=== PATIENT | male | born 1955 | race African-American/Black ===

== ENCOUNTER 2019-07-28 11:44 | Inpatient (IN) | payer OTHER ==
[~2019-07-28] VITALS: Ht 188 cm; Wt 81.9 kg
[~2019-07-28 11:44] MED LIST: PRILOSEC
[2019-07-28] MEDS ORDERED: SODIUM CHLORIDE 0.9% 1000ML 500 ML IV STA (11:56)
[2019-07-28 12:19] LABS: BASOPHILS % 0.5 % (0.0-1.0); EOSINOPHILS # (AUTO) 0.2 (0.0-0.4); EOSINOPHILS % 3.2 % (0.0-6.0); HEMATOCRIT 31.1 % (38.2-49.6); LYMPHOCYTES # (AUTO) 1.4 (1.0-3.2); LYMPHOCYTES % 21.5 % (18.0-39.1); MEAN CORPUSCULAR HEMOGLOBIN 27.2 pg (28-32); MEAN CORPUSCULAR HGB CONC 28.9 g/dL (31-35); MONOCYTES # (AUTO) 0.6 (0.2-0.8); MONOCYTES % 8.6 % (4.4-11.3); NEUTROPHILS # (AUTO) 4.4 (2.1-6.9); NEUTROPHILS % 65.9 % (38.7-80.0); PLATELET COUNT 273 x10e3/uL (140-360); RED BLOOD COUNT 3.31 x10e6/uL (4.3-5.7); RED CELL DISTRIBUTION WIDTH 20.2 % (11.7-14.4)
[2019-07-28 12:40] LABS: ALANINE AMINOTRANSFERASE 58 IU/L (0-55); ALBUMIN 3.4 g/dL (3.5-5.0); ALBUMIN/GLOBULIN RATIO 1.4 (0.8-2.0); ALKALINE PHOSPHATASE 80 IU/L (40-150); ANION GAP 10.4 mmol/L (8-16); BLOOD UREA NITROGEN 6 mg/dL (7-26); BUN/CREATININE RATIO 10 (6-25); CHLORIDE 93 mmol/L (98-107); CREATINE KINASE 96 IU/L (30-200); CREATININE, SERUM 0.62 mg/dL (0.72-1.25); EST GLOMERULAR FILTRATION RATE > 60 ML/MIN (60-); GLUCOSE 100 mg/dL (74-118); POTASSIUM 3.4 mmol/L (3.5-5.1); SODIUM 144 mmol/L (136-145)
[2019-07-28 12:48] LABS: CARBON DIOXIDE 44 mmol/L (22-29)
--- NOTE | 2019-07-28 13:07 | Diagnostic Imaging Report ---
EXAMINATION: Head and cervical spine CT without contrast. HISTORY: Status post fall, trauma, head and neck pain COMPARISON: None. TECHNIQUE: Multidetector axial images were obtained without contrast from the foramen magnum to the vertex and through the cervical spine. The images were reconstructed using brain and bone algorithms. Thin section brain images were reformatted into coronal and sagittal planes. Dose modulation, iterative reconstruction, and/or weight based adjustment of the mA/kV was utilized to reduce the radiation dose to as low as reasonably achievable. HEAD CT FINDINGS: Skull/scalp: No lytic or blastic lesions. No fractures. Incidentally noted benign bony exostosis in the left temporal parietal cortex. Parenchyma: Few scattered benign hypodensities, most likely nonspecific chronic microvascular changes, within normal limits for age. No mass, hemorrhage or CT evidence of acute vascular insult. Brain volume: Normal for age. Ventricles: No hydrocephalus or displacement. Arteries: No density suggestive of thrombus. Dural sinuses: No abnormal density. Extra-axial spaces: No abnormal density. Foramen magnum: No mass, Chiari malformation, or basilar invagination. Sella: No obvious mass. Paranasal/mastoid sinuses: Imaged portions unremarkable. CERVICAL SPINE CT FINDINGS: Alignment:Reversal of the cervical lordosis which may be related to multiple possible positional.. Soft tissues: Emphysematous changes in the lung apices.. Vertebrae: Normal height and density. No acute fracture, infection or neoplasm. Degenerative changes: C1-C2: Degenerative changes without stenosis. C2-C3: Disc osteophyte complex formation asymmetric to the right, bilateral uncovertebral and facet arthrosis. Moderate spinal canal and bilateral foraminal stenoses C3-C4: Disc osteophyte complex formation asymmetric to the right, uncovertebral arthrosis. Severe right and mild left foraminal stenosis. Moderate spinal canal stenosis. C4-C5: Asymmetric disc osteophyte complex formation, bilateral uncovertebral and facet arthrosis. Moderately severe right and moderate left foraminal stenosis. Mild canal stenosis. C5-C6: Disc osteophyte "formation, bilateral uncovertebral and facet arthrosis. Moderate right and severe left foraminal stenosis. Moderate spinal canal stenosis. C6-C7: Disc osteophyte complex formation, bilateral uncovertebral and facet arthrosis. Severe spinal canal and bilateral foraminal stenosis. C7-T1: Prominent facet arthrosis mainly on the right. Mild bilateral foraminal stenoses. IMPRESSION: Head CT: No acute traumatic intracranial abnormality, particularly no hemorrhage. Cervical spine CT: 1. No acute fractures or dislocations. 2. Chronic degenerative changes as described. Note: Acute post traumatic spinal cord, vascular or ligamentous injury cannot adequately be assessed with CT. Signed by: Dr. Alissa Rowan M.D. on 07/28/2019 1:04 PM
[2019-07-28 13:09] LABS: HYPOCHROMASIA SLIGHT; RBC MORPHOLOGY COMMENT ABNORMAL
--- NOTE | 2019-07-28 13:19 | Diagnostic Imaging Report ---
Right hip, 2 views Clinical indications: Fall, pain Comparison: None Findings: These right hip were obtained. There is no radiographic evidence of acute fracture or dislocation. There are mild degenerative changes of the right hip. Impression: No radiographic evidence of acute fracture or dislocation of the right hip. Signed by: Taurus Lew MD on 07/28/2019 1:16 PM
--- NOTE | 2019-07-28 13:20 | Diagnostic Imaging Report ---
Pelvis, one view Clinical indication: Fall, pain Comparison: None Findings: AP view of the pelvis was obtained. There is no radiographic evidence of acute fracture or dislocation. The bone mineralization is normal. Left iliac vascular stent is in place. Impression: No radiographic evidence of acute fracture or dislocation. Signed by: Taurus Lew MD on 07/28/2019 1:17 PM
--- NOTE | 2019-07-28 13:22 | Diagnostic Imaging Report ---
Right femur, 2 views of 4 radiographs Clinical indication: Fall, pain Comparison: None Findings: 2 views of the right femur were obtained on 4 radiographs. There is no radiographic evidence of acute fracture or dislocation. Atherosclerotic vascular calcifications are noted. There are degenerative changes of the right knee which are most pronounced in the lateral compartment. Impression: No radiographic evidence of acute fracture or dislocation. Signed by: Taurus Lew MD on 07/28/2019 1:19 PM
--- NOTE | 2019-07-28 13:26 | Diagnostic Imaging Report ---
Chest, portable AP view History: Fall Comparison: No comparisons available for review Findings: The heart is within normal limits of size. The mediastinal and hilar contours are unremarkable. A 13 mm nodular opacity seen in the right upper lung zone. No focal consolidation, pleural effusion, or pneumothorax. Impression: 13 mm nodular opacity in the right upper lung zone. A chest CT should be performed for further evaluation. Signed by: Taurus Lew MD on 07/28/2019 1:23 PM
[2019-07-28 13:55] LABS: BILIRUBIN,URINE NEGATIVE (NEGATIVE); COLOR,URINE YELLOW (YELLOW); KETONES,URINE NEGATIVE (NEGATIVE); LEUKOCYTE ESTERASE ,URINE NEGATIVE (NEGATIVE); NITRITE,URINE NEGATIVE (NEGATIVE); PROTEIN,URINE DIPSTICK NEGATIVE (NEGATIVE); URINE UROBILINOGEN 0.2 mg/dL (0.2 - 1)
[2019-07-28 13:56] LABS: CLARITY,URINE CLEAR (CLEAR)
[2019-07-28] MEDS ORDERED: CLOPIDOGREL75 MG (14:01)
[2019-07-28] MEDS ORDERED: FENOFIBRATE134 MG (14:01)
[2019-07-28] MEDS ORDERED: CLOTRIMAZOLE10 MG (14:01)
[2019-07-28] MEDS ORDERED: LOSARTAN POTASS25 MG (14:01)
[2019-07-28] MEDS ORDERED: OMEPRAZOLE40 MG (14:01)
[2019-07-28] MEDS ORDERED: TRELEGY ELLIPT1 EACH (14:01)
[2019-07-28] MEDS ORDERED: ALBUTEROL SULF 0.083% NEB SOLN 3 ML NEB NEB STA (14:08)
[2019-07-28] MEDS ORDERED: IPRATROPIUM BROMIDE 0.02% 2.5 ML NEB NEB STA (14:08)
[2019-07-28 14:10] LABS: BACTERIA,URINE RARE /HPF; EPITHELIAL CELLS,URINE FEW /LPF
[2019-07-28] MEDS ORDERED: ALBUTEROL SULF 0.083% NEB SOLN 3 ML NEB NEB PRN (14:15)
[2019-07-28] MEDS ORDERED: LEVOFLOXACIN 500MG/D5W 100ML IV SCH (14:15)
[2019-07-28 14:27] LABS: ABG HCO3 46 mmol/L (23-28); ABG PCO2 94 mmHg (41-51); ABG PO2 117 mmHg (80-105)
--- OUTSIDE RECORDS SUMMARY | 2019-07-28 14:27 | XMS REPORT ---
Author Author [facility] Address Unknown Phone Unavailable Care Team Providers Care Esthetician Spa Name Role Phone ENMA THOMAS Unavailable Unavailable Problems This patient has no known problems. Allergies, Adverse Reactions, Alerts This patient has no known allergies or adverse reactions. Medications This patient has no known medications. Results Test Description Test Time Test Comments Text Results Atomic Results Result Comments CHEST SINGLE (PORTABLE) 2019-07-28 13:20:00 [place] [address] Patient Name: STEVAN HUBBARD MR #: [id number] : 1955 Age/Sex: 63/M Req #: [id number] [facility] Physician: Ordered by: ENMA THOMAS MD, MD Report #: [id number] Location: ER Room/Bed: Procedure: [id number] DX/CHEST SINGLE (PORTABLE) Exam Date: 07/28/19 Exam Time: 1210 REPORT STATUS: Signed Chest, portable AP view History: Fall Co mparison: No comparisons available for review Findings: The heart is within normal limits of size. The mediastinal and hilar contours are unremarkable. A 13 mm nodular opacity seen in the right upper lung zone. No focal consolidation, pleural effusion, or pneumothorax. Impression: 13 mm nodular opacity in the right upper lung zone. A chest CT should be performed for further evaluation. Signed by: Taurus Bello MD on 07/28/2019 1:23 PM Dictated By: TAURUS BELLO MD 22 Transcribed By: CLIVE on 07/28/191322 COPY TO: MARTHAENMA FEMUR TWO VIEW MINIMUM RIGHT 2019-07-28 13:17:00 [place] [id number] [place] [id number] Patient Name: STEVAN HUBBARD MR #: [id number] : 1955 Age/Sex: 63/M Req #: [id number] Adm Physician: Ordered by: ANA LAURA WINTERS NP Report #: [id number] Location: ER Room/Bed: Procedure: [id number] DX/FEMUR TWO VIEW MINIMUM RIGHT Exam Date: Exam Time: REPORT STATUS: Signed Right femur, 2 views of 4 radiographs Clinical indicat ion: Fall, pain Comparison: None Findings: 2 views of the right femur were obtained on 4 radiographs. There is no radiographic evidence of acute fracture or dislocation. Atherosclerotic vascular calcifications are noted. There are degenerative changes of the right knee which are most pronounced in the lateral compartment. Impression: No radiographic evidence of acute fracture or dislocation. Signed by: Taurus Bello MD on 07/28/2019 1:19 PM Dictated By: TAURUS BELLO MD 18 Transcribed By: CLIVE on 07/28/191318 COPY TO: ANA LAURA WINTERS NP PELVIS AP 1-2 VIEWS 2019-07-28 13:16:00 [place] [address] Patient Name: STEVAN HUBBARD MR #: [id number] : 1955 Age/Sex: 63/M Req #: [id number] Adm Physician: Ordered by: ENMA THOMAS MD, MD Report #: [id number] Location: ER Room/Bed: Procedure: [id number] DX/PELVIS AP 1-2 VIEWS Exam Date: 07/28/19 Exam Time: 1210 REPORT STATUS: Signed Pelvis, one view Clinical indication: Fall, pain Comparison: None Findings: AP view of the pelvis was obtained. There is no radiographic evidence of acute fracture or dislocation. The bone mineralization is normal. Left iliac vascular stent is in place. Impression: No radiographic evidence of acute fracture or dislocation. Signed by: Taurus Bello MD on 07/28/2019 1:17 PM Dictated By: TAURUS BELLO MD 16 Transcribed By: CLIVE on 07/28/191316 COPY TO: ENMA THOMAS HIP RIGHT 2-3 VW (+/- PELVIS) 2019-07-28 13:15:00 [place] [address] Patient Name: STEVAN HUBBARD MR #: [id number] : 1955 Age/Sex: 63/M Req #: [id number] Adm Physician: Ordered by: ANA LAURA WINTERS NP Report #: [id number] Location: ER Room/Bed: Procedure: [id number] DX/HIP RIGHT 2-3 VW (+/- PELVIS) Exam Date: Exam Time: REPORT STATUS: Signed Right hip, 2 views Clinical indications: Fall, pain Comparison: None Findings: These right hip were obtained. There is no radiographic evidence of acute fracture or dislocation. There are mild degenerative changes of the right hip. Impression: No radiographic evidence of acute fracture or dislocation of the right hip. Signed by: Taurus Bello MD on 07/28/2019 1:16 PM Dictated By: TAURUS BELLO MD 15 Transcribed By: CLIVE on 07/28/191315 COPY TO: ANA LAURA WINTERS NP CT CERVICAL SPINE WO 2019-07-28 12:59:00 [place] [address] Patient Name: STEVAN HUBBARD MR #: [id number] : 1955 Age/Sex: 63/M Req #: [id number] Adm Physician: Ordered by: ENMA THOMAS MD, MD Report #: [id number] Location: ER Room/Bed: Procedure: [id number] CT/CT CERVICAL SPINE WO Exam Date: 07/28/19 Exam Time: 1225 REPORT STATUS: Signed EXAMINATION: Head and cervical spine CT without contr ast. HISTORY: Status post fall, trauma, head and neck pain COMPARISON: None. TECHNIQUE: Multidetector axial images were obtained without contrast from the foramen magnum to the vertex and through the cervical spine. The images were reconstructed using brain and bone algorithms. Thin section brain images were reformatted into coronal and sagittal planes. Dose modulation, iterative reconstruction, and/or weight based adjustment of the mA/kV was utilized to reduce the radiation dose to as low as reasonably achievable. HEAD CT FINDINGS: Skull/scalp: No lytic or blastic lesions. No fractures. Incidentally noted benign bony exostosis in the left temporal parietal cortex. Parenchyma: Few scattered benign hypodensities, most likely nonspecific chronic microvascular changes, within normal limits for age. No mass, hemorrhage or CT evidence of acute vascular insult. Brain volume: Normal for age. Ventricles: No hydrocephalus or displaceme nt. Arteries: No density suggestive of thrombus. Dural sinuses: No abnormal density. Extra-axial spaces: No abnormal density. Foramen magnum: No mass, Chiari malformation, or basilar invagination. Sella: No obvious mass. Paranasal/mastoid sinuses: Imaged portions unremarkable. CERVICAL SPINE CT FINDINGS: Alignment:Reversal of the cervical lordosis which may be related to multiple possible positional.. Soft tissues: Emphysematous changes in the lung apices.. Vertebrae: Normal height and density. No acute fracture, infection or neoplasm. Degenerative changes: C1-C2: Degenerative changes without stenosis. C2-C3: Disc osteophyte complex formation asymmetric to the right, bilateral uncovertebral and facet arthrosis. Moderate spinal canal and bilateral foraminal stenoses C3-C4: Disc osteophyte complex formation asymmetric to the right, uncovertebral arthrosis. Severe right and mild left foraminal stenosis. Moderate spinal canal stenosis. C4-C5: Asymmetric disc osteophyte complex formation, bilateral uncovertebral and facet arthrosis. Moderately severe right and moderate left foraminal stenosis. Mild canal stenosis. C5-C6: Disc osteophyte "formation, bilateral uncovertebral and facet arthrosis. Moderate right and severe left foraminal stenosis. Moderate spinal canal stenosis. C6-C7: Disc osteophyte complex formation, bilateral uncovertebral and facet arthrosis. Severe spinal canal and bilateral foraminal stenosis. C7-T1: Prominent facet arthrosis mainly on the right. Mild bilateral foraminal stenoses. IMPRESSION: Head CT: No acute traumatic intracranial abnormality, particularly no hemorrhage. Cervical spine CT: 1. No acute fractures or dislocations. 2. Chronic degenerative changes as described. Note: Acute post traumatic spinal cord, vascular or ligamentous injury cannot adequately be assessed with CT. Signed by: Dr. Alissa Rowan M.D. on 07/28/2019 1:04 PM Dictated By: ALISSA ROWAN MD 1304 Transcribed By: CLIVE on 07/28/19 1304 COPY TO: ENMA THOMAS CT BRAIN WO 2019-07-28 12:59:00 [place] [address] Patient Name: STEVAN HUBBARD MR #: [id number] : 1955 Age/Sex: 63/M Req #: [id number] Adm Physician: Ordered by: ANA LAURA WINTERS NP Report #: [id number] Location: ER Room/Bed: Procedure: [id number] CT/CT BRAIN WO Exam Date: 07/28/19 Exam Time: 1225 REPORT STATUS: Signed EXAMINATION: Head and cervical spine CT without contrast. HISTORY: Status post fall, trauma, head and neck pain COMPARISON: None. TECHNIQUE: Multidetector axial images were obtained without contrast from the foramen magnum to the vertex and through the cervical spine. The images were reconstructed using brain and bone algorithms. Thin section brain images were reformatted into coronal and sagittal planes. Dose modulation, iterative reconstruction, and/or weight based adjustment of the mA/kV was utilized to reduce the radiation dose to as low as reasonably achievable. HEAD CT FINDINGS: Skull/scalp: No lytic or blastic lesions. No fractures. Incidentally noted benign bony exostosis in the left temporal parietal cortex. Parenchyma: Few scattered benign hypodensities, most likely nonspecific chronic microvascular changes, within normal limits for age. No mass, hemorrhage or CT evidence of acute vascular insult. Brain volume: Normal for age. Ventricles: No hydrocephalus or displacement. Arteries: No density suggestive of thrombus. Dural sinuses: No abnormal density. Extra-axial spaces: No abnormal density. Foramen magnum: No mass, Chiari malformation, or basilar invagination. Sella: No obvious mass. Paranasal/mastoid sinuses: Imaged portions unremarkable. CERVICAL SPINE CT FINDINGS: Alignment:Reversal of the cervical lordosis which may be related to multiple possible positional.. Soft tissues: Emphysematous changes in the lung apices.. Vertebrae: Normal height and density. No acute fracture, infection or neoplasm. Degenerative changes: C1-C2: Degenerative changes without stenosis. C2-C3: Disc osteophyte complex formation asymmetric to the right, bilateral uncovertebral and facet arthrosis. Moderate spinal canal and bilateral foraminal stenoses C3-C4: Disc osteophyte complex formation asymmetric to the right, uncovertebral arthrosis. Severe right and mild left foraminal stenosis. Moderate spinal canal stenosis. C4-C5: Asymmetric disc osteophyte complex formation, bilateral uncovertebral and facet arthrosis. Moderately severe right and moderate left foraminal stenosis. Mild canal stenosis. C5-C6: Disc osteophyte "formation, bilateral uncovertebral and facet arthrosis. Moderate right and severe left foraminal stenosis. Moderate spinal canal stenosis. C6-C7: Disc osteophyte complex formation, bilateral uncovertebral and facet arthrosis. Severe spinal canal and bilateral foraminal stenosis. C7-T1: Prominent facet arthrosis mainly on the right. M ild bilateral foraminal stenoses. IMPRESSION: Head CT: No acute traumatic intracranial abnormality, particularly no hemorrhage. Cervical spine CT: 1. No acute fractures or dislocations. 2. Chronic degenerative changes as described. Note: Acute post traumatic spinal cord, vascular or ligamentous injury cannot adequately be assessed with CT. Signed by: Dr. Alissa Rowan M.D. on 07/28/2019 1:04 PM Dictated By: ALISSA ROWAN MD 1301 Transcribed By: CLIVE on 07/28/19 1303 COPY TO: ANA LAURA WINTERS NP CT Lung Cancer Screening 2018-07-28 12:00:33 Patient: STEVAN HUBBARD Date/Time07/28/2018 10:20 CSTReason for ExamR63.4ReportEXAM: CT LUNG CANCER SCREENINGHISTORY: R63.4Location code: R 16TECHNIQUE: Axial tomograms through the chest were obtained without intravenous contrast. Low-dose screening protocol is utilized. Coronal and sagittal reformatted images are provided. Automated exposure reduction (Auto mA/Smart mA) was utilized in compliance with ACR [employer] with DLP of 92.44 mGy-cm.COMPARISON: None available time of interpretation.FINDINGS:LUNGS:. Diffuse centrilobular emphysema. No focal pulmonary nodules. Benign focal subcentimeter calcifications noted in the medial right lung base (series 3 image [id number]).PLEURA: No pleural effusion or pneumothorax.CARDIAC: Heart size is normal. Moderate diffuse coronary artery calcifications particularly at the proximal LAD (series 2 image 71).VASCULATURE: Aorta and pulmonary artery of normal caliber. Mild atherosclerosis of aorta. No aneurysm.TRACHEOBRONCHIAL TREE: The trachea and lobar bronchi are unremarkable.LYMPHATICS: Multiple large calcified right hilar lymph nodes are seen measuring in the subcentimeter-1.6 cm range. 1.5cm densely calcified subcarinal node as well. Other scattered subcentimeter mediastinal nodes which appear reactive.VISUALIZED ABDOMEN: Unremarkable.BONES: No aggressive osseous lesions. Disease with prominent lateral osteophytes at T11-T12, T8- [id number]:1. No suspicious pulmonary nodules.2. Right lung base benign calcification. Multiple calcified right hilar/mediastinal lymph nodes compatible with old granulomatous disease.3. Severe emphysema.4. Note of moderate coronary artery disease particularly involving the proximal LAD, moderate dense calcification.Lung-RADS Category: 1 (Continued annual screening recommended.) Final Dictated by: MD Abbey, Leticia FDictated DT/TM: 07/28/2018 11:49 amSigned by: MD Potter Eniola FSigned (Electronic Signature): 07/28/2018 12:00 pm
[2019-07-28] MEDS ORDERED: METHYLPREDNISOLONE SOD SUCC 125 MG/2ML VIAL IV NR (14:30)
[2019-07-28] MEDS ORDERED: POTASSIUM CHLORIDE 20 MEQ TAB CR PO NR (14:45)
[2019-07-28] MEDS: IPRATROPIUM BROMIDE 0.02% 2.5 ML NEB NEB SCH ×2 (14:52→19:20)
[2019-07-28] MEDS ORDERED: FAMOTIDINE 20 MG/2 ML VIAL IV NR (15:00)
[2019-07-28] MEDS: LEVOFLOXACIN 500MG/D5W 100ML 100 ML IV SCH (15:22)
[2019-07-28 15:45] VITALS: BP 152/72
--- NOTE | 2019-07-28 15:45 | NUR ---
PT RECEIVED FROM ER. NEIL3. EDUCATED PT ABOUT FALL PRECAUTIONS. CALL LIGHT WITH IN EASY REACH. INSTRUCTED PT TO USE CALL LIGHT FOR ALL THE NEEDS. PT VERBALIZED UNDERSTANDING. BED IS LOW AND LOCKED. SIDE RAILS X2. BED ALARM IS ON. PT DENIES NEEDS AT THIS TIME.
[2019-07-28 16:00] VITALS: BP 152/72
--- NOTE | 2019-07-28 16:00 | NUR ---
PAGED DR. ANDREA AND DR. FROST. WAITING FOR THE CALL BACK FOR ORDERS.
--- NOTE | 2019-07-28 16:20 | NUR ---
PT IS AGITATED. PT FAMILY AT BEDSIDE. DENIES NEEDS AT THIS TIME.
--- NOTE | 2019-07-28 16:25 | NUR ---
CALL BACK FROM DR. FROST. INFORMED PT LAB AND ABG VALUES.
--- NOTE | 2019-07-28 16:40 | NUR ---
RESPIRATORY AT BEDSIDE. PER THE TECH, DR. FROST WANTS CONTINUOUS BIPAP BUT PT REFUSING IT. INFORMED THE SAME TO TOW MATE AND MEASUREMENT ADVISOR. PT DAUGHTER AT BEDSIDE.
--- NOTE | 2019-07-28 16:51 | NUR ---
spoke with patient about possible transfer to IMCU or ICU to place on bipap. patient refused bipap at this time and stated that he feels fine right now. instructed him to let the nurse know if he feels things are declining and we could re-visit transfer at that time. opal ordered PRN for anxitety.
--- NOTE | 2019-07-28 16:55 | NUR ---
TRANSFER THE PT TO [facility] PER DR. ANDREA. INFORMED THE SAME TO PIPE BOWL PAINT TRIMMER.
[2019-07-28 17:00] VITALS: BP 152/72
--- NOTE | 2019-07-28 17:00 | NUR ---
UNABLE TO COMPLETE THE ADMISSION ASSESSMENT AT THIS TIME. PT IS AGITATED AND NOT READY TO GIVE ANY INFORMATION.
[2019-07-28] MEDS: ALPRAZOLAM 0.25 MG TAB PO SCH (17:10)
--- NOTE | 2019-07-28 17:30 | NUR ---
WALKING ROUNDS MADE. PT IS RESTING ON BED. NO SIGNS OF DISTRESS NOTED. PT SON AT BEDSIDE.
--- NOTE | 2019-07-28 18:45 | NUR ---
PT VITALS RECHECKED. BP 144/79, HR 98, O2 SAT 95 % 2 L NC . PT SON AT BEDSIDE.
--- NOTE | 2019-07-28 18:55 | NUR ---
CALLED RESPIRATORY REGARDING BREATHING TREATMENT.
--- NOTE | 2019-07-28 19:00 | NUR ---
BEDSIDE SHIFT REPORT GIVEN TO THE BALL HOLDER RN. PT SON AT BEDSIDE. DENIED FURTHER NEEDS.
[2019-07-28 19:04] VITALS: BP 144/79
--- NOTE | 2019-07-28 19:20 | NUR ---
Patient received sitting up in bed. AAO x 3. Patient had no complaints of pain. Respirations even and non-labored on 2L NC. Fall precautions implemented. Patient instructed to call for assistance when needed. Call light within reach.
[2019-07-28] MEDS: METHYLPREDNISOLONE SOD SUCC 40 MG/ML VIAL 1ML IV SCH (20:31)
[2019-07-28] MEDS: FAMOTIDINE 20 MG/2 ML VIAL IV SCH (20:31)
--- NOTE | 2019-07-28 20:38 | NUR ---
BIPAP machine in room. Patient refused to wear BIPAP at this time after efforts instructing him to put it on.
[2019-07-28 20:46] LABS: CREATINE KINASE MB 8.3 ng/mL (0-5.0)
--- NOTE | 2019-07-28 21:02 | NUR ---
Patient to be transferred to Room 198 (IMCU). Report given to Mayte regarding patient's status.
--- NOTE | 2019-07-28 21:15 | NUR ---
Received patient alert and awake, but a little confused. Daughter present. No complaints raised
[2019-07-28 21:30] VITALS: BP 159/80
[2019-07-28 22:00] VITALS: BP 159/80
[2019-07-29] VITALS (8 sets, daily range): BP systolic 107–169; BP diastolic 65–79
[2019-07-29] MEDS: ALPRAZOLAM 0.25 MG TAB PO SCH
--- NOTE | 2019-07-29 00:30 | NUR ---
Patient awake and confused but following instructions, reviewed by Dr Singleton and put on BIPAP, for close monitoring, if he shows no improvement ABG to be considered
[2019-07-29] MEDS: ALBUTEROL SULF 0.083% NEB SOLN 3 ML NEB NEB PRN ×3 (00:50→18:50)
[2019-07-29] MEDS: IPRATROPIUM BROMIDE 0.02% 2.5 ML NEB NEB SCH ×6 (00:50→23:30)
[2019-07-29] MEDS ORDERED: ALPRAZOLAM 0.25 MG TAB PO PRN (01:00)
[2019-07-29] MEDS ORDERED: POTASSIUM CHLORIDE 20MEQ/100ML 100 ML IV ONE (01:00)
[2019-07-29] MEDS ORDERED: DEXTROSE 5% 1,000 ML IV SCH (01:00)
[2019-07-29] MEDS ORDERED: MAGNESIUM SULFATE 2GM/50ML 50 ML IV ONE (01:15)
[2019-07-29] MEDS ORDERED: THIAMINE HCL INJ 100 MG/ML 2ML VIAL IV ONE (01:15)
[2019-07-29] MEDS: METHYLPREDNISOLONE SOD SUCC 40 MG/ML VIAL 1ML IV SCH ×4 (03:18→20:44)
--- NOTE | 2019-07-29 04:00 | NUR ---
Patient awake, confused and agitated, pulled out all the iv lines, monitoring leads and bipap, trying to get out of bed. Dr Aponte consulted and asked for orders to get him a sitter. Nursing Branch Administrator aware
[2019-07-29 05:13] LABS: BASOPHILS % 0.2 % (0.0-1.0); EOSINOPHILS # (AUTO) 0.1 (0.0-0.4); EOSINOPHILS % 1.9 % (0.0-6.0); HEMATOCRIT 30.9 % (38.2-49.6); HEMOGLOBIN 8.9 g/dL (14.0-18.0); LYMPHOCYTES # (AUTO) 0.3 (1.0-3.2); LYMPHOCYTES % 5.3 % (18.0-39.1); MEAN CORPUSCULAR HEMOGLOBIN 27.1 pg (28-32); MEAN CORPUSCULAR HGB CONC 28.8 g/dL (31-35); MEAN CORPUSCULAR VOLUME 93.9 fL (81-99); MONOCYTES # (AUTO) 0.1 (0.2-0.8); MONOCYTES % 2.3 % (4.4-11.3); NEUTROPHILS # (AUTO) 5.6 (2.1-6.9); PLATELET COUNT 270 x10e3/uL (140-360); RED BLOOD COUNT 3.29 x10e6/uL (4.3-5.7); RED CELL DISTRIBUTION WIDTH 20.2 % (11.7-14.4)
--- NOTE | 2019-07-29 05:30 | NUR ---
remains confused and refuses to wear a BIPAP, to be transferred to icu as per the washing and screening plant supervisor. vitals stable
[2019-07-29 05:43] LABS: CREATINE KINASE MB 7.5 ng/mL (0-5.0)
[2019-07-29 05:58] LABS: FREE THYROXINE INDEX 1.9137 (1.4-3.8); THYROID STIMULATING HORMONE 0.5 uIU/mL (0.350-4.940)
[2019-07-29 06:06] LABS: ALANINE AMINOTRANSFERASE 59 IU/L (0-55); ALBUMIN 3.4 g/dL (3.5-5.0); ALBUMIN/GLOBULIN RATIO 1.4 (0.8-2.0); ALKALINE PHOSPHATASE 89 IU/L (40-150); ANION GAP 12.2 mmol/L (8-16); BLOOD UREA NITROGEN 7 mg/dL (7-26); BUN/CREATININE RATIO 11 (6-25); CALCIUM 8.7 mg/dL (8.4-10.2); CARBON DIOXIDE 38 mmol/L (22-29); CHLORIDE 95 mmol/L (98-107); CREATININE, SERUM 0.66 mg/dL (0.72-1.25); EST GLOMERULAR FILTRATION RATE > 60 ML/MIN (60-); GLUCOSE 192 mg/dL (74-118); MAGNESIUM 1.8 MG/DL (1.3-2.1); POTASSIUM 4.2 mmol/L (3.5-5.1); SODIUM 141 mmol/L (136-145)
--- NOTE | 2019-07-29 06:37 | Consultation ---
DATE OF CONSULTATION: 07/28/2019 Pulmonary Medicine Consult REASON FOR REFERRAL: Acute respiratory failure. HISTORY OF PRESENT ILLNESS: Mr. Mccormick is a pleasant 63-year-old gentleman with acute respiratory failure. The patient presented to [facility] on July 28, 2019 after having a fall. He had right hip and right thigh and had impact. There was mild pain, he did sustain a blow to the head. The patient continue to have x- rays to include right hip x-ray, right femur, pelvic x-rays, which were all negative. Chest x-ray with 30 mm right upper lung zone opacity nodular. Head CT unremarkable for acute changes. The patient was noted to have steady difficulty breathing. He had some shortness of breath. He has to rescue with BiPAP. Same time, he is agitated. I am consulted. PAST MEDICAL HISTORY: Hypertension. MEDICATIONS: Medication list reviewed per the chart record. ALLERGIES: NO KNOWN DRUG ALLERGIES. SOCIAL HISTORY: Nothing was retaken. Other notes suggest he is never smoker, limited. FAMILY HISTORY: Noncontributory. Most likely, but limited. REVIEW OF SYSTEMS: Cannot get as he is altered. OBJECTIVE: VITAL SIGNS: Afebrile, vital signs noted per electronic record or unstable. The patient with difficulty breathing. GENERAL: He looks poor, looks chronic, he finally accepts BiPAP rescue after not accepting for much in the night. HEENT: Normocephalic, atraumatic. NECK: Supple. Throat midline. LUNGS: Bilateral air entry, very much decreased air entry, rare rhonchi. CARDIOVASCULAR: S1, S2. No murmurs, rubs, or gallops. ABDOMINAL: Soft, nontender. EXTREMITIES: No clubbing, no cyanosis. There is only trace leg edema. INTEGUMENT: No rash, no purpura. LABORATORY DATA: Labs reviewed per electronic record. 3.4 potassium, 6 BUN, 0.6 creatinine. 44 bicarbonate. 6.6 white count, 31 hematocrit, and 223 platelets. RADIOGRAPHY: The patient with 13 mm right upper lung zone lung nodule. IMPRESSION AND PLAN: 1. Acute respiratory failure, BiPAP salvage. 2. Hypercapnic/hypoxic respiratory failure. 3. Presumed chronic obstructive pulmonary disease with exacerbation. 4. Status post fall. 5. Encephalopathy, toxic metabolic. 6. Delirium with agitation. 7. Right upper lobe lung nodule. Continue BiPAP salvage for now. Steroids. Bronchodilators. DVT prophylaxis. Empiric antibiotics. Treat for possible pneumonia. As the patient stabilizes, we will take him for a contrast chest CT. The patient was upgraded to IMCU level due to critical nature. Intermittent blood gases may be needed if he does not prove stability. Thank you very much, Dr. Peñaloza for this consult. Please call for questions. Greater than 30 minutes in direct care and coordination today, multiple coordination. MD CARLOS Mcgraw/LAVON /[phone] MTDJana
--- NOTE | 2019-07-29 06:45 | NUR ---
Patients miss Rangel spoke to him, patient calmed down, accepted to be put back on bipap and lay back in bed. Vitals stable
--- NOTE | 2019-07-29 07:06 | NUR ---
handed over calm
[2019-07-29 07:18] LABS: LYMPHOCYTES % (MANUAL) 6 % (19-48); MONOCYTES % (MANUAL) 2 % (3.4-9.0); NEUTROPHILS % (MANUAL) 92 % (40-74)
[2019-07-29 07:21] LABS: ANISOCYTOSIS SLIGHT; HYPOCHROMASIA SLIGHT; MICROCYTOSIS SLIGHT
[2019-07-29 07:22] LABS: OVALOCYTES FEW; RBC MORPHOLOGY COMMENT ABNORMAL; STOMATOCYTES SLIG
[2019-07-29 07:23] LABS: PLATELET ESTIMATE ADEQUATE; PLATELET MORPHOLOGY COMMENT NORMAL; POIKILOCYTOSIS SLIG
--- NOTE | 2019-07-29 08:44 | Diagnostic Imaging Report ---
EXAMINATION: CHEST SINGLE (PORTABLE) INDICATION: COPD COMPARISON: Chest radiograph of 07/28/2019 FINDINGS: LINES/TUBES:EKG leads overlie the chest. LUNGS:The lungs are mildly hyperinflated. No focal consolidation. Subsegmental atelectasis at the right lung base. The previously mentioned perihilar nodular opacity on the right is not as well seen on this chest radiograph. PLEURA:No pleural effusion or pneumothorax. MEDIASTINUM:The cardiomediastinal silhouette appears unchanged in size and shape. BONES/SOFT TISSUES:No acute osseous injury. ABDOMEN:No free air under the diaphragm. IMPRESSION: No significant interval change. Signed by: Ferdinand Andrews MD on 07/29/2019 8:41 AM
[2019-07-29] MEDS: FAMOTIDINE 20 MG/2 ML VIAL IV SCH ×2 (10:12→20:44)
--- NOTE | 2019-07-29 14:38 | NUR ---
ATTEMPTED TO DO DPA, PT ABOUT TO BE MOVED AND FAMILY NOT PRESENT. HE IS UNABLE TO ANSWER QUESTIONS
[2019-07-29] MEDS: LEVOFLOXACIN 500MG/D5W 100ML 100 ML IV SCH (15:28)
[2019-07-29] MEDS ORDERED: SODIUM CHLORIDE 0.9% 250ML 250 ML ONE (15:43)
[2019-07-29] MEDS: ENOXAPARIN SOD INJ 40 MG/0.4 ML SYR SC SCH (17:58)
[2019-07-29] MEDS: NICOTINE 21 MG/EA PATCH TOP SCH (19:40)
--- NOTE | 2019-07-29 19:45 | NUR ---
Dr. James called for consult and I spoke to Kate with answering service.
[2019-07-29] MEDS: RISPERIDONE 0.5 MG TAB PO PRN (20:44)
[2019-07-30] VITALS (11 sets, daily range): BP systolic 137–175; BP diastolic 73–124
--- NOTE | 2019-07-30 01:38 | History and Physical ---
HISTORY OF PRESENT ILLNESS: A 63-year-old male with past medical history positive for COPD, hypertension, complaining of pain. Apparently, he had a fall. He injured his head, right hip and right thigh. He was also found to have evidence of chronic obstructive pulmonary disease exacerbation. He was placed on a BiPAP. He had x-rays of the right hip, which were negative. Right femur was negative. Pelvis was negative. CT of the spine showed no evidence of any acute traumatic fracture or dislocation. He showed evidence of chronic degenerative changes. CT of head came back negative. REVIEW OF SYSTEMS: CARDIOVASCULAR: No chest pain or palpitation. RESPIRATORY: No shortness of breath. No cough. GASTROINTESTINAL: No nausea, vomiting, or diarrhea. GENITOURINARY: No frequency or dysuria. ALLERGIES: HE IS NOT ALLERGIC TO ANY MEDICATION. SOCIAL HISTORY: He used to smoke. He does not smoke anymore. He does not drink alcohol. PAST MEDICAL HISTORY: He claimed that he only has COPD. PHYSICAL EXAMINATION: HEART: Showed regular rhythm. Normal S1, S2 sound. LUNGS: Show decreased breath sounds bilaterally. ABDOMEN: Soft. EXTREMITIES: Show no evidence of cyanosis or hematoma. Chest x-ray shows COPD. CT of the head as I said showed no evidence of any intracranial abnormality. CT of the cervical spine showed no fractures. On the BMP; sodium 141, potassium 4.2, chloride 95, CO2 of 38, BUN 7, creatinine 0.86, glucose 182. On CBC, white count 6.17, hemoglobin 8.9, hematocrit 30.9, platelet count 270,000. AST 40, ALT 59, total bilirubin 0.3, alkaline phosphatase 89. FINAL IMPRESSION: 1. Acute hypoxemic hypercapnic respiratory failure. 2. Chronic obstructive pulmonary disease exacerbation. 3. Anemia of chronic disease. 4. elevated LFTs. PLAN OF TREATMENT: Continue BiPAP, which the patient is refusing to use so far. We commenced him to use at least a nasal cannula provided the oxygen saturation more than 90%. Continue albuterol and Atrovent q.4 hours. Continue Levaquin 500 mg IV daily. Continue Lovenox 40 mg subcutaneous daily for DVT prophylaxis, Pepcid 20 mg twice a day, Nicoderm patch 40 mg daily, Solu-Medrol 40 mg IV q.6 hours. We going to order Risperdal 0.5 mg p.o. q.6 hours as needed for agitation. We are going to get a psychiatric consult because the patient is very agitated at times. Consult Pulmonary, Dr. Aponte who has seen the patient already, the patient in the ICU. Time spent around 45 minutes. MD AUGUSTINE David/LAVON /[id number]
--- NOTE | 2019-07-30 01:55 | NUR ---
Pulmonary Medicine DATE: 07/29/2019 SUBJECTIVE: Better air entry on lung exam He is still SOB He still asks for BIPAP intermittently Confused still BM+ void+ REVIEW OF SYSTEMS: Cannot get as he is altered. OBJECTIVE: VITAL SIGNS: vital signs noted per electronic record GENERAL: looks chronic, not always speaking. intermittently speaking per family HEENT: Normocephalic, atraumatic. NECK: Supple. Throat midline. LUNGS: Bilateral air entry, decreased air entry but better, rare rhonchi. CARDIOVASCULAR: S1, S2. No murmurs, rubs, or gallops. ABDOMINAL: Soft, nontender. EXTREMITIES: No clubbing, no cyanosis. trace leg edema. INTEGUMENT: No rash, no purpura. LABORATORY DATA: cr .66, wbc 6.17, hct 31, plt 270 RADIOGRAPHY: IMPRESSION AND PLAN: 1. Acute respiratory failure, intermittent BiPAP salvage. 2. Hypercapnic/hypoxic respiratory failure. 3. Chronic obstructive pulmonary disease with exacerbation. 4. S/p fall. 5. Encephalopathy, toxic metabolic. 6. Delirium with agitation. 7. Right upper lobe lung nodule. Possible CAP. Continue BiPAP salvage for now. Steroids. Bronchodilators. DVT prophylaxis. Empiric antibiotics. Treat for possible pneumonia. As the patient stabilizes, we will take him for a contrast chest CT. He remains in critical condition. Recheck PRN blood gases if he does not prove stable Thank you very much, Dr. Peñaloza for this consult. Please call for questions.
[2019-07-30] MEDS: METHYLPREDNISOLONE SOD SUCC 40 MG/ML VIAL 1ML IV SCH ×4 (02:45→21:28)
[2019-07-30] MEDS: ALBUTEROL SULF 0.083% NEB SOLN 3 ML NEB NEB PRN ×2 (02:50→20:00)
[2019-07-30] MEDS: IPRATROPIUM BROMIDE 0.02% 2.5 ML NEB NEB SCH ×6 (02:50→23:00)
[2019-07-30 05:04] LABS: HEMOGLOBIN 8.9 g/dL (14.0-18.0); LYMPHOCYTES # (AUTO) 0.5 (1.0-3.2); LYMPHOCYTES % 6.3 % (18.0-39.1); MEAN CORPUSCULAR HEMOGLOBIN 27.3 pg (28-32); MEAN CORPUSCULAR HGB CONC 29.7 g/dL (31-35); MONOCYTES # (AUTO) 0.3 (0.2-0.8); MONOCYTES % 4.2 % (4.4-11.3); NEUTROPHILS # (AUTO) 7.2 (2.1-6.9); NEUTROPHILS % 88.9 % (38.7-80.0); PLATELET COUNT 295 x10e3/uL (140-360); RED BLOOD COUNT 3.26 x10e6/uL (4.3-5.7); RED CELL DISTRIBUTION WIDTH 20.2 % (11.7-14.4)
[2019-07-30 05:31] LABS: ANION GAP 10.9 mmol/L (8-16); BLOOD UREA NITROGEN 7 mg/dL (7-26); BUN/CREATININE RATIO 11 (6-25); CALCIUM 9.2 mg/dL (8.4-10.2); CARBON DIOXIDE 40 mmol/L (22-29); CHLORIDE 92 mmol/L (98-107); CREATININE, SERUM 0.65 mg/dL (0.72-1.25); EST GLOMERULAR FILTRATION RATE > 60 ML/MIN (60-); GLUCOSE 137 mg/dL (74-118); MAGNESIUM 1.7 MG/DL (1.3-2.1); PHOSPHORUS 2.8 MG/DL (2.3-4.7); POTASSIUM 3.9 mmol/L (3.5-5.1); SODIUM 139 mmol/L (136-145)
[2019-07-30] MEDS ORDERED: NICOTINE 14 MG/EA PATCH TOP SCH (09:00)
[2019-07-30] MEDS: FAMOTIDINE 20 MG/2 ML VIAL IV SCH ×2 (09:03→21:28)
[2019-07-30] MEDS: NICOTINE 21 MG/EA PATCH TOP SCH (09:03)
[2019-07-30] MEDS: RISPERIDONE 0.5 MG TAB PO PRN (12:55)
--- NOTE | 2019-07-30 15:08 | Progress Note ---
DATE: Internal Medicine Progress Note SUBJECTIVE: The patient is still complaining of shortness of breath . PHYSICAL EXAMINATION: HEART: Showed regular rhythm. Normal S1, S2 sound. LUNGS: Show decreased breath sounds bilaterally. ABDOMEN: Soft. EXTREMITIES: Show no evidence of cyanosis or hematoma. LABORATORY DATA: On the blood work, we have a CBC; white count 8.10, hemoglobin 8.9, hematocrit 30.0, platelet count 295,000. On the BMP; sodium 139, potassium 3.9, chloride 92, CO2 40, BUN 7, creatinine 0.65, GFR of more than 60, glucose 137. Troponins are essentially unremarkable. Total protein 5.8, albumin 3.4, globin 2.4, albumin globin ratio 1.4. TSH 0.500. MICROBIOLOGY: We have urine culture, which shows contamination. Chest x-ray was done and showed no significant interval change. He has COPD. He also had a cervical spine CT with no acute traumatic intracranial abnormality. No hemorrhage. Cervical spine CT, no acute fracture, dislocation, or chronic degenerative changes. Also, he has pelvis x-ray, which showed no radiographic evidence of acute fracture or dislocation. He also had a femur x-ray, which showed no evidence of any fracture and same with hip, no hip fracture. FINAL IMPRESSION: 1. Acute hypoxic and hypercapnic respiratory failure, refusing the BiPAP. 2. Chronic obstructive pulmonary disease exacerbation. 3. Anemia of chronic disease. 4. Elevated LFTs. 5. Psychosis. PLAN OF TREATMENT: BiPAP has been recommended, but the patient been refuses. He has been using also only the oxygen via nasal cannula. We are going to continue Levaquin 500 mg IV daily. Continue with Lovenox 40 mg subcutaneously daily, Pepcid 20 mg IV twice a day, Atrovent q.4 hours, Solu-Medrol 40 mg IV q.6 hours, nicotine patch 21 mg daily, Risperdal 0.5 mg twice a day as needed for agitation, albuterol q.4 hours as needed for shortness of breath. Dr. Aponte is on the case for Pulmonary. Dr. Gabriel will cover for me tomorrow and then on the weekend is Dr. Shi on-call. Dr. Moore will start covering on Saturday again until the patient gets discharged. The patient is very uncooperative, sometime hostile to the nursing staff. Risperdal has been ordered for agitation also. MD AUGUSTINE David/LAVON /[id number]
[2019-07-30] MEDS: LEVOFLOXACIN 500MG/D5W 100ML 100 ML IV SCH (15:10)
--- NOTE | 2019-07-30 15:12 | NUR ---
Order received for LTAC eval, specifically with a pulmonary rehab program. Spoke to Claire Mccormick () [phone] who chooses [facility]. Notified Lucia Shelton with [facility].
[2019-07-30] MEDS: ENOXAPARIN SOD INJ 40 MG/0.4 ML SYR SC SCH (16:53)
[2019-07-30] MEDS ORDERED: OLANZAPINE 5 MG TAB PO PRN (17:00)
[2019-07-30] MEDS ORDERED: OLANZAPINE 5 MG TAB PO SCH (21:00)
[2019-07-30] MEDS: LORAZEPAM 0.5 MG TAB PO PRN (22:38)
[2019-07-30] MEDS ORDERED: NOREPINEPHRINE 8 MG/D5W 250 ML 250 ML ONE (23:32)
[2019-07-31] VITALS (8 sets, daily range): BP systolic 127–175; BP diastolic 69–91
[2019-07-31] MEDS: IPRATROPIUM BROMIDE 0.02% 2.5 ML NEB NEB SCH ×7 (01:00→23:51)
[2019-07-31] MEDS: ALBUTEROL SULF 0.083% NEB SOLN 3 ML NEB NEB PRN ×4 (01:00→15:00)
[2019-07-31] MEDS: HALOPERIDOL LACTATE 5 MG/ML VIAL IM PRN ×2 (02:25→10:38)
[2019-07-31] MEDS: METHYLPREDNISOLONE SOD SUCC 40 MG/ML VIAL 1ML IV SCH (03:00)
--- NOTE | 2019-07-31 03:56 | NUR ---
Pulmonary Medicine DATE: 07/30/2019 SUBJECTIVE: Better air entry on lung exam again he is sitting up, speaks conversations now ao x 1-2 2 L/min oxygen by NC bipap at night used REVIEW OF SYSTEMS: Cannot get as he is altered. OBJECTIVE: VITAL SIGNS: vital signs noted per electronic record GENERAL: speaking, alert, calm HEENT: Normocephalic, atraumatic. NECK: Supple. Throat midline. LUNGS: Bilateral air entry, decreased air entry CARDIOVASCULAR: S1, S2. No murmurs, rubs, or gallops. ABDOMINAL: Soft, nontender. EXTREMITIES: No clubbing, no cyanosis. trace leg edema. INTEGUMENT: No rash, no purpura. LABORATORY DATA: per eMR hco3 40 IMPRESSION AND PLAN: 1. Acute respiratory failure, intermittent BiPAP salvage. 2. Hypercapnic/hypoxic respiratory failure. 3. Chronic obstructive pulmonary disease with exacerbation. 4. S/p fall. 5. Encephalopathy, toxic metabolic. 6. Delirium with agitation. 7. Right upper lobe lung nodule. Possible CAP. 8. metabolic alkalosis evolving Continue BiPAP intermittent as needed oxygen per protocol consider diamox use wean steroids. Bronchodilators. DVT prophylaxis. Empiric antibiotics. Treat for possible pneumonia. As the patient stabilizes, we will take him for a contrast chest CT. Thank you very much, Dr. Peñaloza for this consult. Please call for questions.
--- NOTE | 2019-07-31 05:54 | NUR ---
around 2100 Pt became agitated and uncooperative. He refused to wear his oxygen and breathing treatment. He was aggressive towards the staff. Zyprexa, Ativan and Haldol was given as ordered. however Pt would sleep for about an hour and would become more confused stating that he wants to go home. The pt was reoriented to his environment, safety maintained, no falls or injury noted. Pt's notified, 1:1 sitter at bedside, vital sign stable will continue to monitor
[2019-07-31] MEDS: FAMOTIDINE 20 MG/2 ML VIAL IV SCH ×2 (08:15→19:55)
[2019-07-31] MEDS: NICOTINE 21 MG/EA PATCH TOP SCH (08:15)
--- NOTE | 2019-07-31 09:45 | NUR ---
PT BECAME AGITATED AND TOOK ALL MONITORING OFF, REFUSED OXYGEN PT REORIENTED WAS ABLE TO PUT O2 MONITOR BACK ON PT SATS AT 85% WITHOUT O2, PLACED BACK ON NC PT SATS INCREASED. PT STATES " JUST GETOUT OF HERE AND LEAVE ME ALONE" WILL CONTINUE TO MONITOR CLOSELY
[2019-07-31] MEDS: PREDNISONE 20 MG TAB PO SCH (10:05)
--- NOTE | 2019-07-31 10:35 | NUR ---
PT BECAME AGITATED ATTEMPTING TO GET OUT OF BED SWINGING LEGS OVER SIDE, TAKING OFF MONITORING AND OXYGEN OFF OF FACE PT HAVING SOME SOB, USING ACCESSORY MUSCLES TO BREATHE AND REFUSING ANY OXYGEN PT PINCHING THIS RN AND SNATCHED OFF BADGE, BECOMING INCREASINGLY AGGRESSIVE, SHALA SMITH CALLED
--- NOTE | 2019-07-31 10:40 | NUR ---
UNABLE TO GET AHOLD OF OFFICE, SPOKE TO RECEIVED ORDERS FOR DEEPAK. WILL CONTINUE TO MONITOR
[2019-07-31] MEDS ORDERED: ZIPRASIDONE 20 MG VIAL IM PRN (10:45)
--- NOTE | 2019-07-31 11:23 | Progress Note ---
DATE: 07/31/2019 I am covering for Dr. Peñaloza. SUBJECTIVE: Mr. Mccormick is a 63-year-old man with history of tobacco use, COPD, hypertension, and alcohol abuse. Apparently, he fell, had some a head injury. He started having shortness of breath. He was placed on BiPAP, admitted to ICU. CT scan of the spine and the head was negative. He was found to be hypoxemic and hypercapnic. Pulmonary consult was requested with Dr. Aponte. At the present time, the patient is in ICU, on BiPAP. PHYSICAL EXAMINATION: GENERAL: The patient is a lethargic and kind of agitated. VITAL SIGNS: Temperature is 97.9, blood pressure is 147/84. He is on BiPAP. Oxygen level was low so he was placed on BiPAP. LUNGS: Poor respiratory effort. HEART: Regular rate. ABDOMEN: Soft. EXTREMITIES: Mild edema. LABORATORY DATA: White count 8.10, hemoglobin 8.9, and hematocrit 30. Blood gas shows a pH of 7.30, CO2 of 94, PO2 of 117, that was three days ago. Potassium 3.9, creatinine is 0.65, and glucose is 137. Cardiac enzymes were negative. Urine culture showed 10,000-50,000, coagulase-negative Staph, probably skin contaminant. He had a chest x-ray done two days ago that showed no significant interval change on admission. The chest x-ray showed nodular opacity in the right upper lung zone. ASSESSMENT: 1. Acute hypoxic hypercapnic respiratory failure, on BiPAP. 2. Chronic obstructive pulmonary disease exacerbation. 3. Metabolic encephalopathy. 4. Tobacco use. 5. Ethanol abuse. 6. Hypertension. 7. Delirium with agitation. 8. Right upper lobe pulmonary nodule. 9. Elevated liver enzymes. PLAN: At present time is to continue on BiPAP and continue to monitor respiratory status and oxygen levels. The patient is on a Levaquin IV daily. He is on DVT prophylaxis with Lovenox. Ulcer prophylaxis with Pepcid. Continue neb treatment. Continue IV steroids, nicotine patch. He is also on risperidone for agitation. The overall prognosis of the patient remains voided. All this was discussed at bedside with the patient and especially with a family member. They are all questions were answered to satisfaction. I spent more than 35 minutes examining the patient, reviewing overnight event, lab results, and x-rays and discussing plan of care with family. MD LATRELL Duran/LAVON /[id number]
--- NOTE | 2019-07-31 13:45 | NUR ---
ATTEMPTED TO SWITCH PATIENT OFF OF BIPAP, PT BEGAN TO GET UPSET STATES " LEAVE ME ALONE" WILL TRY AGAIN LATER
--- NOTE | 2019-07-31 14:06 | NUR ---
Pulmonary Medicine DATE: 07/31/2019 SUBJECTIVE: 4 L/min oxygen by NC intermittent bipap 14/6 cm requiring meds for agitation/delirium REVIEW OF SYSTEMS: Cannot get as he is altered. OBJECTIVE: VITAL SIGNS: vital signs noted per electronic record GENERAL: speaking, alert, calm HEENT: Normocephalic, atraumatic. NECK: Supple. Throat midline. LUNGS: Bilateral air entry, decreased air entry CARDIOVASCULAR: S1, S2. No murmurs, rubs, or gallops. ABDOMINAL: Soft, nontender. EXTREMITIES: No clubbing, no cyanosis. trace leg edema. INTEGUMENT: No rash, no purpura. LABORATORY DATA: per eMR hco3 40 IMPRESSION AND PLAN: 1. Acute respiratory failure, intermittent BiPAP salvage. 2. Hypercapnic/hypoxic respiratory failure. 3. Chronic obstructive pulmonary disease with exacerbation. 4. S/p fall. 5. Encephalopathy, toxic metabolic. 6. Delirium with agitation. 7. Right upper lobe lung nodule. Possible CAP. 8. metabolic alkalosis evolving 9. ETOH dependency, 12/day Continue BiPAP intermittent as needed oxygen per protocol intermittent diamox use wean steroids. Bronchodilators. DVT prophylaxis. vitamins Empiric antibiotics. Treat for possible pneumonia. await contrast chest CT. Thank you very much, Dr. Peñaloza for this consult. Please call for questions.
--- NOTE | 2019-07-31 14:09 | Consultation ---
DATE OF CONSULTATION: 07/30/2019 Psychiatric Consultation The patient evaluated and events noted. The patient is consulted for psychosis and agitation. HISTORY OF PRESENT ILLNESS: The patient is a 63-year-old male, admitted to the hospital for status post fall, psych consult for agitation. As per medical record, the patient has history of hypertension and COPD. The patient was seen by Psychiatry at [facility]. I had extensive discussion with the , who reported that prior to time when he was admitted to [facility], he was doing fair, however, for last 2 weeks, he has been hallucinating. He is thinking people are out to harm him. He is engaged in self-talk. He was not able to state the current year [place]. The patient is seen in the ICU today with a sitter. He is oriented to self, place, and time. He is calm and cooperative. He is oriented to situation, answering question appropriately and he knows where he is and the current year. He admits to feeling anxious. Denies any depression. Denies any hallucination. Denies any suicidal or homicidal ideation. He complained of poor sleep and poor appetite. As per nurse, the patient has been restless, not redirectable. PAST PSYCHIATRIC HISTORY: The patient denies past psychiatric history, although he has been confused and hallucinating for last few weeks. He denies past suicide attempt. He denies alcohol and drug use. FAMILY HISTORY: Denies. SOCIAL HISTORY: The patient lives with his . MENTAL STATUS EXAM: The patient is an elderly male. His mood is anxious. He denies any suicidal or homicidal ideation. He denies any hallucination. Thought process is concrete. No delusion or paranoia elicited. Insight and judgment are fair. CURRENT MEDICATIONS: 1. Risperdal p.r.n. 2. Albuterol. 3. Atrovent. 4. Famotidine. 5. Lovenox. 6. Levofloxacin. 7. Nicotine. 8. Prednisolone. CURRENT LABS: WBC 8.10, RBC 3.26, hemoglobin 8.9, hematocrit 30, and platelets 295. Sodium 139, potassium 3.9, chloride 92, CO2 40, BUN 7, and creatinine 0.65. AST 40 and ALT 59. ASSESSMENT: 1. Unspecified psychosis. 2. Rule out dementia. PLAN: 1. To discontinue Risperdal. 2. Add Zyprexa 2.5 mg p.o. q.6 hours as needed. 3. Add Zyprexa 2.5 mg p.o. at bedtime. 4. Add Haldol 2 mg IM q.6 hours p.r.n. 5. Add Ativan 0.5 mg p.o. q.6 hours p.r.n. 6. Monitor for mood. 7. Supportive therapy. Thank you for this consultation. Dictated by Mine Flowers PA-C Zita James MD QTV/MODL /[id number]
[2019-07-31] MEDS ORDERED: ACETAZOLAMIDE 500 MG CAP PO ONE (14:30)
[2019-07-31] MEDS: ACETAZOLAMIDE 250 MG TAB PO SCH (14:45)
[2019-07-31] MEDS: DIVALPROEX SODIUM 125 MG TABDR...ER PO SCH ×2 (15:00→19:55)
[2019-07-31] MEDS ORDERED: DIVALPROEX SODIUM 250 MG TAB...DR PO SCH (15:00)
[2019-07-31] MEDS ORDERED: WATER STERILE 10 ML VIAL INJ PRN (15:00)
[2019-07-31] MEDS: LEVOFLOXACIN 500MG/D5W 100ML 100 ML IV SCH (15:03)
--- NOTE | 2019-07-31 15:40 | NUR ---
ATTEMPTED TO SWITCH PATIENT OFF OF BIPAP AND PUT ON NC. PT BECAME AGGRESSIVE REMOVED BIPAP AND REFUSED NC BEGAN TO STAND UP, SWATING AT NURSE AND YELLING TO LEAVE HIM ALONE. OTHER NURSES IN ROOM PT STILL REFUSING ASSISTANCE. MD DR.NASSIF BUNCH RECEIVED ORDERS. PT RISK FOR FALLS KEEPS TRYING TO GET OUT OF BED ASKED FOR WATER WHEN GIVEN BY MALE NURSE PT WAS OKAY THIS RN ATTEMPTED TO ASSIST PT THREW WATER AT RN AND CUP ACROSS THE ROOM. PT STILL AGITATED
--- NOTE | 2019-07-31 15:44 | Progress Note ---
DATE: 07/31/2019 SUBJECTIVE: The patient was evaluated and events noted. The patient is in the ICU. His is in the room nearby. The patient is sleeping and on the BiPAP. He received p.r.n. Geodon at 11 today. He is combative, agitated, and restless and as per nurse, he did not sleep last night. He got multiple medication for sleep and agitation. I had a long discussion with , who has some questions regarding his current psychiatric issues. She reports that the patient has been intermittently forgetful, but functions independently. She claims that his daughter has bipolar and she wanted to ask about possibly diagnosed with him having bipolar. However, he has never been diagnosed in the past. She claims he is irritable at home and some mood swings. The patient today at 10:38 a.m. that did not help. An hour later, he received Geodon and he appears to be calm with Geodon p.r.n. IM. As per , she is concerned about the patient's respiratory status. He was at [facility] and received a medication that made him very drowsy. She does not know the medication he received. She is sure that we are giving him small dose and slowly titrated. ASSESSMENT: 1. Unspecified psychosis/delirium (multifactorial). 2. Rule out dementia. PLAN: 1. Plan is to increase Zyprexa from 0.25 at bedtime to 0.25 twice a day and 2.5 at bedtime. 2. Depakote 125 three times a day. 3. Continue OT on p.r.n. IM. 4. Continue Haldol p.r.n. IM. 5. Continue Ativan 0.5 mg p.o. q.6 hours as needed. 6. Monitor agitation and record. Dictated by Mine Flowers PA-C Zita James MD QTV/LAVON /[id number]
[2019-07-31] MEDS: ZIPRASIDONE 20 MG VIAL IM PRN (16:00)
[2019-07-31] MEDS: OLANZAPINE 5 MG TAB PO SCH ×2 (16:18→19:55)
--- NOTE | 2019-07-31 16:31 | NUR ---
Spoke with Lucia barkley [place], who said pt has been approved for LTAC. She has called and updated pt's . Per bedside RN, pt not ready to be discharged. If pt cleared for discharge this weekend, Navin Villegas with [facility] [phone] will be electronic tester and will be able to provide MOT. MOT was initiated and is in front of pt's chart.
--- NOTE | 2019-07-31 16:36 | NUR ---
ASSISTED IN CHANGING DIAPER AND GOWN PT CONTINUES TO BE AGITATED STATING GET OUT OF MY ROOM, THIS RN ASSISTED AND STEPPED OUT OF ROOM. PT SAFELY IN BED WITH NC ON BUT STILL REFUSING TO TAKE MEDICATION OR ALLOWING ANYONE ELSE IN ROOM
[2019-07-31] MEDS: ENOXAPARIN SOD INJ 40 MG/0.4 ML SYR SC SCH (18:12)
--- NOTE | 2019-07-31 18:35 | Diagnostic Imaging Report ---
EXAM: CT Chest WITH contrast 07/31/2019 8:00 AM INDICATION: COPD, dyspnea COMPARISON: Chest x-ray, 07/29/2019 TECHNIQUE: Chest was scanned utilizing a multidetector helical scanner from the lung apex through the level of the adrenal glands with administration of IV contrast. Coronal and sagittal reformations were obtained. Routine protocol was performed. Dose modulation, iterative reconstruction, and/or weight based adjustment of the mA/kV was utilized to reduce the radiation dose to as low as reasonably achievable. IV CONTRAST: 100 mL of Isovue-370 RADIATION DOSE: Total DLP: 581.10 mGy*cm Estimated effective dose: (DLP x 0.014 x size factor) mSv COMPLICATIONS: None FINDINGS: LINES/ TUBES: None. LUNGS AND AIRWAYS: There is marked centrilobular and paraseptal emphysematous change. In the posterior right upper lobe there is localized stranding that may represent scarring or atelectasis. There is a 5 mm groundglass nodule in the right lower lobe (series 3, image 36). Trachea and main bronchi are clear. PLEURA: No pleural effusion or pneumothorax. HEART AND MEDIASTINUM: The thyroid gland is normal. No mediastinal, hilar or axillary lymphadenopathy. Calcified mediastinal lymph nodes are noted. The heart is normal in size.. There is no pericardial effusion. The thoracic aorta is atherosclerotic with scattered calcified plaque. No aneurysm or dissection. Ascending aorta measures 3.3 cm, main pulmonary artery measures 2.7 cm, normal. UPPER ABDOMEN: Included portions of the liver, spleen, pancreas, adrenals and kidneys show no evidence for focal pathology. BONES: No acute or suspicious bony lesions. Evaluation for minor rib abnormalities may be obscured by patient motion artifact. Areas of cortical discontinuity in the sternum on lateral view are likely related to patient motion artifact. There are scattered degenerative changes in the thoracic spine. There is marked degenerative change at C7-T1. SOFT TISSUES: Superficial surrounding soft tissue unremarkable. IMPRESSION: 1. Advanced emphysema. No pulmonary consolidation, pleural effusion or pneumothorax. 2. 5 mm groundglass nodule in the apical right lower lobe. Recommend 6 month follow-up noncontrast chest CT according to Fleischner Society criteria. 3. Linear stranding in the right upper lobe may represent atelectasis or scarring. Staff: Abram Signed by: Dr. Kevon Valverde M.D. on 07/31/2019 6:32 PM
--- NOTE | 2019-07-31 19:00 | NUR ---
Bedside report received from Blanca Berman RN. Pt received resting in bed with eyes open, reports no pain or discomfort at this time, no family present, care plan reviewed. Bed in lowest and locked position, call light in reach, bed alarm engaged, yellow anti-slip socks on the pt, and pt instructed to call for assistance before attempting to get up from bed.
[2019-07-31] MEDS ORDERED: SODIUM CHLORIDE 0.9% 50ML 50 ML ONE (19:24)
[2019-07-31] MEDS ORDERED: IOPAMIDOL 370 MG/ML 200 ML INFUS..BTL INJ ONE (19:24)
[2019-07-31] MEDS: LORAZEPAM 0.5 MG TAB PO PRN (19:26)
[2019-08-01] VITALS (12 sets, daily range): BP systolic 107–149; BP diastolic 58–72
--- NOTE | 2019-08-01 05:00 | NUR ---
Pt cleansed with bath wipes, linens changed, gown replaced. With assistance from Beulah BAKER.
--- NOTE | 2019-08-01 07:00 | NUR ---
Bedside report given to Gt Sotelo RN. Pt resting in bed with eyes open, reports no pain or discomfort, bed in lowest and locked position, call light in reach of the pt, yellow anti-slip socks on the pt, pt instructed to call for assistance before getting out of bed. Care plan reviewed, RT now present giving pt breathing treatment as scheduled. Addendum: 08/01/19 at 2031 by Olga Nagy RN Correction - RT now present giving breathing treatment should have been included with 08/01/[id number] nursing note.
[2019-08-01] MEDS: ALBUTEROL SULF 0.083% NEB SOLN 3 ML NEB NEB PRN ×3 (07:35→15:32)
[2019-08-01] MEDS: IPRATROPIUM BROMIDE 0.02% 2.5 ML NEB NEB SCH ×5 (07:35→23:17)
[2019-08-01] MEDS: NICOTINE 21 MG/EA PATCH TOP SCH (07:48)
[2019-08-01] MEDS: FAMOTIDINE 20 MG/2 ML VIAL IV SCH ×2 (07:48→20:12)
[2019-08-01] MEDS: PREDNISONE 20 MG TAB PO SCH (07:48)
[2019-08-01] MEDS: DIVALPROEX SODIUM 125 MG TABDR...ER PO SCH ×3 (07:48→20:12)
[2019-08-01] MEDS: OLANZAPINE 5 MG TAB PO SCH ×3 (07:48→20:12)
[2019-08-01] MEDS: ACETAZOLAMIDE 250 MG TAB PO SCH (07:48)
[2019-08-01] MEDS: MULTIVITAMINS/MINERALS TAB PO SCH (07:48)
[2019-08-01] MEDS: LORAZEPAM 0.5 MG TAB PO PRN (09:50)
[2019-08-01] MEDS ORDERED: LORAZEPAM 0.5 MG TAB PO PRN (12:00)
--- NOTE | 2019-08-01 13:20 | NUR ---
CALL RECEIVED FROM RADHA CALLE INQUIRING IF THE PT IS READY FOR TRANSFER. STATES SHE CALLED ICU EARLIER, BUT THE NURSE GAVE THE PHONE TO THE PT'S . INFORMED RADHA I WILL CALL ICU AND THE DOC TO SEE IF THE PT IS READY FOR DC TODAY. CALL TO THE ICU. SPOKE Branden SLADE RN. STATES HE WAS NOT SURE IF THE PT WAS READY. CALL TO DR. TEJADA; COVERING FOR BOCCARDO. STATES HE WILL CALL THE ICU TO ASSESS RESPIRATORY STATUS AND WILL GET BACK WITH CM.
--- NOTE | 2019-08-01 13:50 | Diagnostic Imaging Report ---
EXAMINATION: CHEST SINGLE (PORTABLE) INDICATION: ^COPD exacerbation ^[id number] ^1200 ^Y COMPARISON: 07/29/2019. FINDINGS: AP view TUBES and LINES: None. LUNGS: Lungs are well inflated. Left basilar opacity is seen likely atelectasis. PLEURA: No pleural effusion or pneumothorax. HEART AND MEDIASTINUM: The cardiomediastinal silhouette is unremarkable. BONES AND SOFT TISSUES: No acute osseous lesion. Soft tissues are unremarkable. UPPER ABDOMEN: No free air under the diaphragm. IMPRESSION: Unchanged left basilar opacity, likely atelectasis. Signed by: Rony Ward MD on 08/01/2019 1:08 PM
[2019-08-01] MEDS: CEFEPIME 1GM/NS 0.9% 50 ML 50 ML IV SCH (14:00)
[2019-08-01 15:15] LABS: ABG PH 7.29 (7.31-7.41)
[2019-08-01 15:19] LABS: ABG HCO3 38 mmol/L (23-28); ABG PCO2 79 mmHg (41-51); ABG PO2 113 mmHg (80-105)
--- NOTE | 2019-08-01 15:26 | NUR ---
RECEIVED CALL BACK FROM DR. TEJADA. STATES THE PT IS VERY SOMNOLENT AND WAS NOT COMFORTABLE W THE MOVE AT THIS TIME. STATES PT WAS STILL ON BIPAP. WILL REASSESS TOMORROW. RADHA CALLE NOTIFIED; PHONE: [phone]
--- NOTE | 2019-08-01 16:20 | NUR ---
Pulmonary Medicine DATE: 08/01/2019 SUBJECTIVE: intermittent bipap still 12/6, rr 16 7.29/79/113 ABG patient walked with min assist to restroom, but he was excessively dyspneic CT noted REVIEW OF SYSTEMS: Cannot get as he is altered. OBJECTIVE: VITAL SIGNS: vital signs noted per electronic record GENERAL: speaking, alert, on BIPAP HEENT: Normocephalic, atraumatic. NECK: Supple. Throat midline. LUNGS: Bilateral air entry, decreased air entry CARDIOVASCULAR: S1, S2. No murmurs, rubs, or gallops. ABDOMINAL: Soft, nontender. EXTREMITIES: No clubbing, no cyanosis. no edema. INTEGUMENT: No rash, no purpura. LABORATORY DATA: hco3 40, cr 0.65 wbc 8.10, hct 30, plt 295 IMPRESSION AND PLAN: 1. Acute respiratory failure, intermittent BiPAP salvage. 2. Hypercapnic/hypoxic respiratory failure. 3. Chronic obstructive pulmonary disease with exacerbation. 4. S/p fall. 5. Encephalopathy, toxic metabolic. 6. Delirium with agitation. 7. Right upper lobe lung nodule. Possible CAP. 8. metabolic alkalosis evolving 9. ETOH dependency, 12/day Continue BiPAP intermittent as needed ABG today, noted oxygen per protocol when off bipap intermittent diamox use ICU care continue Probable LTAC transfer soon psychiatry adjusting medications wean steroids. Bronchodilators. DVT prophylaxis. vitamins Empiric antibiotics. Thank you very much, Dr. Peñaloza for this consult. Please call for questions.
[2019-08-01] MEDS: ENOXAPARIN SOD INJ 40 MG/0.4 ML SYR SC SCH (17:49)
[2019-08-01] MEDS: VANCOMYCIN 1GM/NS 250 ML 250 ML IV SCH (17:49)
--- NOTE | 2019-08-01 19:00 | NUR ---
Bedside report received from Gt CIFUENTES. Care plan reviewed.
[2019-08-02] VITALS (17 sets, daily range): BP systolic 102–148; BP diastolic 63–132
--- NOTE | 2019-08-02 00:02 | NUR ---
Pt is very anxious and ativan prn has been given. Pt also refusing to keep bipap mask on and has removed it multiple times. Attempted to teach pt importance of Bipap mask and he started yelling at me..."I don't care I'm no gonna wear it." Charge nurse Elvira Campos RN notified.
[2019-08-02] MEDS: CEFEPIME 1GM/NS 0.9% 50 ML 50 ML IV SCH ×2 (00:15→15:54)
[2019-08-02] MEDS: ZIPRASIDONE 20 MG VIAL IM PRN (00:34)
--- NOTE | 2019-08-02 01:13 | NUR ---
Pt keeps trying to climb out of the bed. Bed alarm on and working with each attempt. Pt repositioned in bed with each attempt. Teaching attempted but is distracted/inattentive to attempts.
[2019-08-02] MEDS: HALOPERIDOL LACTATE 5 MG/ML VIAL IM PRN (01:14)
[2019-08-02] MEDS: IPRATROPIUM BROMIDE 0.02% 2.5 ML NEB NEB SCH ×5 (02:11→16:49)
[2019-08-02 02:41] LABS: ABG PH 7.25 (7.31-7.41)
[2019-08-02 02:42] LABS: ABG HCO3 36 mmol/L (23-28); ABG PCO2 82 mmHg (41-51); ABG PO2 107 mmHg (80-105)
[2019-08-02] MEDS ORDERED: DEXMEDETOMIDINE 200MCG/NS 50ML 50 ML IV ONE (02:58)
[2019-08-02] MEDS ORDERED: DEXMEDETOMIDINE HCL 200 MCG in SODIUM CHLORIDE 0.9% 50ML 48 ML IV PRN (03:15)
[2019-08-02] MEDS ORDERED: SODIUM CHLORIDE 0.9% IV PRN ×2 (03:15→03:45)
[2019-08-02] MEDS ORDERED: DEXMEDETOMIDINE IV PRN ×2 (03:15→03:45)
[2019-08-02] MEDS: VANCOMYCIN 1GM/NS 250 ML 250 ML IV SCH ×2 (05:20→17:00)
[2019-08-02 05:35] LABS: EOSINOPHILS # (AUTO) 0.1 (0.0-0.4); EOSINOPHILS % 1.9 % (0.0-6.0); HEMATOCRIT 28.9 % (38.2-49.6); HEMOGLOBIN 8.3 g/dL (14.0-18.0); LYMPHOCYTES # (AUTO) 1.1 (1.0-3.2); LYMPHOCYTES % 14.4 % (18.0-39.1); MEAN CORPUSCULAR HGB CONC 28.7 g/dL (31-35); MEAN CORPUSCULAR VOLUME 94.1 fL (81-99); MONOCYTES # (AUTO) 0.6 (0.2-0.8); MONOCYTES % 7.6 % (4.4-11.3); NEUTROPHILS # (AUTO) 5.7 (2.1-6.9); NEUTROPHILS % 75.8 % (38.7-80.0); PLATELET COUNT 242 x10e3/uL (140-360); RED BLOOD COUNT 3.07 x10e6/uL (4.3-5.7); RED CELL DISTRIBUTION WIDTH 19.4 % (11.7-14.4)
[2019-08-02 06:05] LABS: ALANINE AMINOTRANSFERASE 38 IU/L (0-55); ALBUMIN/GLOBULIN RATIO 1.3 (0.8-2.0); ALKALINE PHOSPHATASE 66 IU/L (40-150); ANION GAP 8.9 mmol/L (8-16); BLOOD UREA NITROGEN 12 mg/dL (7-26); BUN/CREATININE RATIO 19 (6-25); CALCIUM 8.6 mg/dL (8.4-10.2); CARBON DIOXIDE 37 mmol/L (22-29); CHLORIDE 101 mmol/L (98-107); CREATININE, SERUM 0.63 mg/dL (0.72-1.25); EST GLOMERULAR FILTRATION RATE > 60 ML/MIN (60-); GLUCOSE 77 mg/dL (74-118); SODIUM 144 mmol/L (136-145)
[2019-08-02 06:06] LABS: MAGNESIUM 1.8 MG/DL (1.3-2.1); PHOSPHORUS 3.1 MG/DL (2.3-4.7)
[2019-08-02 06:16] LABS: POTASSIUM 2.9 mmol/L (3.5-5.1)
[2019-08-02] MEDS: ALBUTEROL SULF 0.083% NEB SOLN 3 ML NEB NEB PRN (07:20)
[2019-08-02] MEDS ORDERED: POTASSIUM CHLORIDE 20MEQ/100ML 300 ML IV ONE (08:15)
[2019-08-02] MEDS ORDERED: SODIUM CHLORIDE 0.9% 250ML 250 ML ONE (08:56)
[2019-08-02] MEDS: DIVALPROEX SODIUM 125 MG TABDR...ER PO SCH ×3 (10:00→15:00)
[2019-08-02] MEDS ORDERED: FUROSEMIDE INJ 10 MG/ML 4 ML VIAL ONE (11:55)
[2019-08-02] MEDS ORDERED: FUROSEMIDE INJ 10 MG/ML 4 ML VIAL IV ONE (12:30)
--- NOTE | 2019-08-02 13:43 | NUR ---
SPOKE WITH NURSE YANY RE PT'S STATUS STATES THAT WHEN DR TEJADA ROUNDED THIS AM HE DOES NOT FEEL THAT PT IS RESP STABLE (ON CONT BIPAP) DR TEJADA THINKS PT MAY REQUIRE INTUBATION FOR SAFE TRANSFER TO LTAC YANY TO SPEAK WITH DR FROST WHEN HE ROUNDS TODAY RE INTUBATION YANY HAS NUMBER TO CALL [facility] FOR MOT WHEN DECISION IS MADE RE TRANSFER
--- NOTE | 2019-08-02 14:16 | NUR ---
Attempted to call Navin Villegas with [facility] [phone] to notify that the patient is ready for transfer. Left a voicemail for a return call
[2019-08-02] MEDS: ACETAZOLAMIDE 250 MG TAB PO SCH (14:17)
[2019-08-02] MEDS: PREDNISONE 20 MG TAB PO SCH (14:17)
[2019-08-02] MEDS: MULTIVITAMINS/MINERALS TAB PO SCH (14:17)
[2019-08-02] MEDS: FAMOTIDINE 20 MG/2 ML VIAL IV SCH (14:17)
[2019-08-02] MEDS: OLANZAPINE 5 MG TAB PO SCH ×2 (14:17→17:00)
[2019-08-02] MEDS: NICOTINE 21 MG/EA PATCH TOP SCH (14:17)
--- NOTE | 2019-08-02 15:22 | NUR ---
PER NURSE YANY, PULMONARY HAS CLEARED PT FOR TRANSFER TO [facility] TODAY CM CALLED RADHA THEODORE FOR MOT AT [phone] RADHA IS CALLING TO SEE IF SHE CAN SECURE AN ICU BED WILL CALL YANY AND MYSELF BACK NURSE AWAITING MOT INFORMATION FOR TRANSFER
--- NOTE | 2019-08-02 15:46 | NUR ---
REC'D CALL BACK FROM RADHA THEODORE AT [place] STATES SHE SPOKE WITH NURSING LOAN REPRESENTATIVE AT [facility] AND DUE TO STAFFING THEY CANNOT TAKE PT NOW WILL TRY TO CALL IN EXTRA NURSE FOR 7PM SHIFT AND THEN WILL BE ABLE TO TAKE PT RADHA CALLED AND UPDATED NURSE YANY AND WILL CALL NURSE THIS EVENING IF ABLE TO ACCEPT PT ENCOURAGED RADHA THAT WE NEED TO EXPEDITE THIS TRANSFER TODAY IF AT ALL POSSIBLE
--- NOTE | 2019-08-02 15:56 | NUR ---
[facility] called and stated they do not have adequate staffing for transfer at the current moment and will update us accordingly.
[2019-08-02] MEDS: ENOXAPARIN SOD INJ 40 MG/0.4 ML SYR SC SCH (17:00)
--- NOTE | 2019-08-02 18:00 | NUR ---
[facility] BED 7. Report to be called after shift change to [phone]
[2019-08-02] MEDS ORDERED: ALBUTEROL/IPRATROPIUM 3 ML NEB NEB SCH (19:00)
--- NOTE | 2019-08-02 19:23 | NUR ---
Report called to Mainor Gupta RN. harvest crew supervisor Jory CIFUENTES notified and is calling [facility] at this time.
[2019-08-02] MEDS ORDERED: FUROSEMIDE INJ 10 MG/ML 4 ML VIAL IV SCH (22:00)
--- NOTE | 2019-08-03 02:04 | NUR ---
Pulmonary Medicine DATE: 08/02/2019 SUBJECTIVE: intermittent bipap still 12/6, rr 16 altered sensorium lots of behavior issues during the night patient on transient precedex during the night ate well eventually REVIEW OF SYSTEMS: Cannot get as he is altered. OBJECTIVE: VITAL SIGNS: vital signs noted per electronic record GENERAL: speaking, alert, on BIPAP HEENT: Normocephalic, atraumatic. NECK: Supple. Throat midline. LUNGS: Bilateral air entry, decreased air entry CARDIOVASCULAR: S1, S2. No murmurs, rubs, or gallops. ABDOMINAL: Soft, nontender. EXTREMITIES: No clubbing, no cyanosis. no edema. INTEGUMENT: No rash, no purpura. LABORATORY DATA: k 2.89 other labs reviewed per record IMPRESSION AND PLAN: 1. Acute respiratory failure, intermittent BiPAP salvage. 2. Hypercapnic/hypoxic respiratory failure. 3. Chronic obstructive pulmonary disease with exacerbation. Very early pneumonia 4. S/p fall. 5. Encephalopathy, toxic metabolic. 6. Delirium with agitation. 7. Right upper lobe lung nodule. Possible CAP. 8. metabolic alkalosis evolving 9. ETOH dependency, 12/day Continue BiPAP intermittent as needed oxygen per protocol when off bipap intermittent diamox use ICU care continue LTAC transfer ok to ICU level of care adjust medications for safety wean steroids. Bronchodilators. DVT prophylaxis. vitamins Empiric antibiotics. > 30 min direct care today, multiple interventions and evaluation d/w at length Thank you very much, Dr. Peñaloza for this consult. Please call for questions.
[2019-08-03] MEDS ORDERED: PREDNISONE 20 MG TAB PO SCH (09:00)
--- NOTE | 2019-08-03 12:15 | Consultation ---
DATE OF CONSULTATION: 07/31/2019 Psychiatric Consultation The patient evaluated and events noted. REASON FOR CONSULTATION: To evaluate the patient's psychosis. HISTORY OF PRESENT ILLNESS: The patient is a 63-year-old male, admitted to the hospital status post fall. Psychiatric consultation is to evaluate the patient's psychosis and agitation. As per medical record, the patient has history of COPD and hypertension. The patient is well known to me from resort. He was found to be confused, paranoid, disorganized there. I spoke to the at length when I met her at the resort. According to her, the patient has been hallucinating for the last 2 weeks. He has been telling people that people are out to hurt him. He was seen engaging in self-talk. The patient was not able to state the year while he was at a resort. Upon evaluation today, the patient is found to be sitting in the chair in his room. Sitter is in the room. The patient is alert, awake, and oriented to situation. He is doing better. He is not disorganized. He is answering questions appropriately. He is able to state the year and the place. He denies any depression. He admits to poor appetite. He complained of poor sleep and poor appetite. No paranoia elicited. Denies any suicidal ideation or homicidal ideation. As per nursing staff, the patient was agitated and combative. He received p.r.n. Risperdal. PAST PSYCHIATRIC HISTORY: The patient denies any past psychiatric history. He denies past suicide attempt. He denies alcohol and drug use. FAMILY HISTORY: Denies. SOCIAL HISTORY: He lives with his . MENTAL STATUS EXAM: The patient is an elderly male, who is alert, awake, and oriented to situation. Mood is anxious. Affect congruent with mood. He denies any suicidal or homicidal ideation. Thought process is concrete. No delusion elicited. Insight and judgment are fair. Memory appears to be grossly intact. CURRENT MEDICATIONS: 1. Risperdal 0.25 mg p.o. b.i.d. 2. Atrovent. 3. Albuterol. DICTATION ENDS HERE Dictated by Mine Flowers PA-C Zita James MD QTV/MODL /[id number]
== END 2019-08-02 20:20 | DRG 193 ==
LOC: ER 11:45 → ERHOLD 14:12 → MED/SURG2 15:36 → IMCU 21:25 → ICU 07-29 14:33
PROVIDERS: ADMIT Internal Medicine; ATTEND Internal Medicine
PROC: 5A09357 Assistance with Respiratory Ventilation, Less than 24 Consecutive Hours, Continuous Positive Airway Pressure (ICD-10-PCS; principal; 2019-07-29)
DX: J18.9 Pneumonia, unspecified organism (principal); J96.02 Acute respiratory failure with hypercapnia; G92 Toxic encephalopathy; J96.01 Acute respiratory failure with hypoxia; J44.1 Chronic obstructive pulmonary disease with (acute) exacerbation; F10.230 Alcohol dependence with withdrawal, uncomplicated; J44.0 Chronic obstructive pulmonary disease with (acute) lower respiratory infection; M25.551 Pain in right hip; I10 Essential (primary) hypertension; Z82.49 Family history of ischemic heart disease and other diseases of the circulatory system; D63.8 Anemia in other chronic diseases classified elsewhere; R79.89 Other specified abnormal findings of blood chemistry; R91.1 Solitary pulmonary nodule; W01.10XA Fall on same level from slipping, tripping and stumbling with subsequent striking against unspecified object, initial encounter; R41.0 Disorientation, unspecified; F29 Unspecified psychosis not due to a substance or known physiological condition; F03.90 Unspecified dementia, unspecified severity, without behavioral disturbance, psychotic disturbance, mood disturbance, and anxiety; Z72.0 Tobacco use; R45.1 Restlessness and agitation; S09.8XXA Other specified injuries of head, initial encounter
CPT/HCPCS: 36415; 36600; 70450; 71045; 71260; 72125; 72170; 80048; 80053; 81001; 82140; 82550; 82553; 82805; 83735; 83880; 84100; 84436; 84443; 84479; 84484; 85025; 87070; 87086; 87205; 93005; 93306; 94640; 94660; 97139; 99285; J0692; J1630; J1650; J1940; J1956; J2920; J3370; J3411; J3475; J3480; J3486; J7030; J7050; J7070; J7512; Q9967